=== PATIENT | male | born 1980 | race Caucasian/White ===

== ENCOUNTER 2022-08-16 17:51 | Emergency (ER) | payer MEDICAID ==
[~2022-08-16] VITALS: Ht 162.6 cm; Wt 68.5 kg
[2022-08-16 18:06] VITALS: BP 145/84; PULSE 68; RESP 18; TEMP 98.1; O2SAT 98
--- NOTE | 2022-08-16 18:22 | NUR ---
42 YO M PRESENTS W/RT HAND 2ND DIGIT LACERATION WHILE WORKING TODAY. PT STATES HE WORKS AT A [employer]. PT WAS WORKING WITH METAL SHARP OBJECTS WHEN HE ACCIDENTALLY CUT HIS FINGER. DENIES NUMBNESS, TINGLING. NO ACTIVE BLEEDING NOTED, REDNESS, SWELLING, AND LAC NOTED. FULL ROM TO HAND AND 2ND DIGIT. SAFETY MAINTAINED. HX: DENIES NKA
[2022-08-16] MEDS ORDERED: LIDOCAINE 1% 500 MG/ 50 ML VIAL INJ ONE (18:25)
[2022-08-16] MEDS ORDERED: LIDOCAINE MPF 1% 5 ML ONE (18:31)
[2022-08-16 19:00] VITALS: O2SAT 98
[2022-08-16] MEDS ORDERED: BACITRACIN OINT 500 UNITS/GM PKT TP ONE (19:10)
[2022-08-16] MEDS ORDERED: IBUP-2213 PO (19:13)
[2022-08-16] MEDS ORDERED: BACI-418 TP (19:13)
--- NOTE | 2022-08-16 19:28 | NUR ---
Patient discharged with v/s stable. Written and verbal after care instructions given and explained. Patient alert, oriented and verbalized understanding of instructions. Ambulatory with steady gait. All questions addressed prior to discharge. ID band removed. Patient advised to follow up with PMD. Rx of BAITRACIN ZINC,IBUPRFEN given. Patient educated on indication of medication including possible reaction and side effects. Opportunity to ask questions provided and answered.
== END 2022-08-16 19:28 | disposition home or self-care (01) ==
LOC: MED 17:51
DX: S61.210A Laceration without foreign body of right index finger without damage to nail, initial encounter (principal); W45.8XXA Other foreign body or object entering through skin, initial encounter; Y93.89 Activity, other specified; Y92.89 Other specified places as the place of occurrence of the external cause; Y99.8 Other external cause status
CPT/HCPCS: 12001; 73140; 90471; 90715; 99283; J2001

== ENCOUNTER 2022-08-20 07:51 | Emergency (ER) | payer MEDICAID ==
[~2022-08-20] VITALS: Ht 165.1 cm; Wt 68.0 kg
[~2022-08-20 07:51] MED LIST: BACI-418 TP; IBUP-2213 PO
[2022-08-20 08:19] VITALS: BP 140/91; PULSE 63; RESP 18; TEMP 98; O2SAT 98
--- NOTE | 2022-08-20 10:33 | NUR ---
HRE FOR WOUND CHECK TO RT INDEX STEPHANI , DR JANE EXAMINE PT
--- NOTE | 2022-08-20 10:34 | NUR ---
Patient discharged with v/s stable. Written and verbal after care instructions given and explained. Patient verbalized understanding. Ambulatory with to home. All questions addressed prior to discharge. Advised to follow up with PMD.
== END 2022-08-20 10:34 | disposition home or self-care (01) ==
LOC: MED 07:51
DX: S61.210D Laceration without foreign body of right index finger without damage to nail, subsequent encounter (principal); Z79.899 Other long term (current) drug therapy; X58.XXXD Exposure to other specified factors, subsequent encounter
CPT/HCPCS: 99281